=== PATIENT | female | born 1960 | race Hispanic/Latino ===

== ENCOUNTER 2022-01-10 01:37 | Emergency (ER) | payer OTHER ==
[~2022-01-10] VITALS: Ht 149.9 cm; Wt 100.2 kg
[2022-01-10] MEDS ORDERED: FAMOTIDINE 20MG VIAL IV ONE ×2 (01:38→02:00)
[2022-01-10] MEDS ORDERED: ONDANSETRON 4MG INJ ONE (01:52)
[2022-01-10 01:59] LABS: BASOPHILS % (AUTO) 0.2 % (0.0-5.0); EOSINOPHILS % (AUTO) 0.2 % (0.0-8.0); HEMATOCRIT 48.2 % (36-48); LYMPHOCYTES % (AUTO) 5.4 % (21.0-51.0); MEAN CORPUSCULAR HEMOGLOBIN 32.2 pg (27.0-33.0); MEAN CORPUSCULAR VOLUME 94.5 fL (79-99); MONOCYTES % (AUTO) 0.4 % (3.0-13.0); NEUTROPHILS % (AUTO) 93.2 % (40.0-77.0); PLATELET COUNT (AUTO) 299 K/uL (130-400); WHITE BLOOD COUNT (AUTO) 12.7 K/uL (4.8-10.8)
[2022-01-10] MEDS ORDERED: ONDANSETRON 4MG INJ IVP ONE (02:00)
[2022-01-10 02:11] LABS: CREATININE 1.5 mg/dL (0.5-1.5); POTASSIUM 3.6 mmol/L (3.5-5.1)
[2022-01-10 02:16] LABS: ALBUMIN 3.6 g/dL (3.5-5.0); BILIRUBIN,TOTAL 0.5 mg/dL (0.2-1.0); TOTAL PROTEIN, SERUM 6.9 g/dL (6.0-8.3)
[2022-01-10 03:08] LABS: APPEARANCE,URINE Cloudy (CLEAR); BILIRUBIN,URINE Negative (NEGATIVE); COLOR,URINE Yellow (YELLOW); GLUCOSE, URINE (UA) Negative (NEGATIVE); KETONES,URINE Trace mg/dL (NEGATIVE); LEUKOCYTE ESTERASE ,URINE Trace (NEGATIVE); NITRATE,URINE Negative (NEGATIVE); OCCULT BLOOD,URINE Negative (NEGATIVE); PH,URINE 5.5 (5.0-8.0); PROTEIN,URINE Trace mg/dL (NEGATIVE); UROBILINOGEN,URINE 0.2 mg/dL (0.2-1.0)
[2022-01-10] MEDS ORDERED: ONDA4TAB10 SL (03:09)
[2022-01-10] MEDS ORDERED: OMEP-420 PO (03:09)
[2022-01-10] MEDS ORDERED: FAMO-136 PO (03:09)
[2022-01-10 03:13] VITALS: BP 92/60
[2022-01-10 03:19] LABS: RBC,URINE None Seen /HPF (0-1)
[2022-01-10 03:20] LABS: BACTERIA,URINE Moderate /HPF (None Seen); SQUAMOUS EPITHELIAL CELL,UR Few /HPF (0-2)
== END 2022-01-10 03:28 | disposition home or self-care (01) ==
LOC: EDH 01:37
DX: K29.70 Gastritis, unspecified, without bleeding (principal); E11.9 Type 2 diabetes mellitus without complications; M79.7 Fibromyalgia; I10 Essential (primary) hypertension; Z90.49 Acquired absence of other specified parts of digestive tract; Z98.890 Other specified postprocedural states
CPT/HCPCS: 36415; 71045; 80053; 81001; 83880; 84484; 85025; 87088; 93005; 96374; 96375; 99285; J2405; J3490

== ENCOUNTER 2024-03-13 20:20 | Emergency (ER) | payer OTHER ==
[~2024-03-13] VITALS: Ht 149.9 cm; Wt 97.5 kg
[~2024-03-13 20:20] MED LIST: FAMO-136 PO; OMEP-420 PO; ONDA-243 SL
[2024-03-13 22:03] LABS: BASOPHILS # (AUTO) 0.07 K/uL (0.00-0.20); BASOPHILS % (AUTO) 0.9 % (0.0-5.0); EOSINOPHILS # (AUTO) 0.32 K/uL (0.00-0.70); HEMATOCRIT 45.1 % (36-48); IMMATURE GRANULOCYTE ABSOLUTE 0.01 K/uL (0-1); LYMPHOCYTES # (AUTO) 3.2 K/uL (1.0-4.8); LYMPHOCYTES % (AUTO) 40.5 % (21.0-51.0); MEAN CORPUSCULAR HEMOGLOBIN 32.2 pg (27.0-33.0); MEAN CORPUSCULAR HGB CONC 34.1 g/dL (32.0-36.0); MEAN CORPUSCULAR VOLUME 94.4 fL (79-99); MONOCYTES # (AUTO) 0.8 K/uL (0.1-1.0); MONOCYTES % (AUTO) 9.5 % (3.0-13.0); NEUTROPHILS # (AUTO) 3.6 K/uL (1.8-7.7); PLATELET COUNT (AUTO) 241 K/uL (130-400); RED BLOOD CELL COUNT(AUTO) 4.78 MIL/uL (4.00-5.50); WHITE BLOOD COUNT (AUTO) 7.9 K/uL (4.8-10.8)
[2024-03-13 22:16] LABS: CREATININE 0.7 mg/dL (0.5-1.0); POTASSIUM 3.8 mmol/L (3.5-5.1)
[2024-03-13 22:21] LABS: COVID19 (SARS ANTIGEN RAPID) PRESUMPTIVE NEGATIVE (NEGATIVE)
[2024-03-13 22:22] LABS: INFLUENZA TYPE A Negative For Type A (NEGATIVE); INFLUENZA TYPE B Negative For Type B (NEGATIVE)
[2024-03-13 22:25] LABS: ALBUMIN 4.1 g/dL (3.5-5.0); BILIRUBIN,TOTAL 0.8 mg/dL (0.2-1.0); TOTAL PROTEIN, SERUM 7.6 g/dL (6.0-8.3)
[2024-03-13 22:33] LABS: B-TYPE NATRIURETIC PEPTIDE < 5 pg/mL (0-100)
[2024-03-13 22:37] LABS: APPEARANCE,URINE CLEAR (CLEAR); BILIRUBIN,URINE NEGATIVE (NEGATIVE); COLOR,URINE COLORLESS (YELLOW); GLUCOSE, URINE (UA) NEGATIVE (NEGATIVE); KETONES,URINE NEGATIVE (NEGATIVE); LEUKOCYTE ESTERASE ,URINE NEGATIVE Leu/uL (NEGATIVE); NITRATE,URINE NEGATIVE (NEGATIVE); OCCULT BLOOD,URINE SMALL (NEGATIVE); PROTEIN,URINE NEGATIVE (NEGATIVE); UROBILINOGEN,URINE 0.2 mg/dL (0.2-1.0)
[2024-03-13 22:47] LABS: ADD UA MICROSCOPIC YES
[2024-03-13 22:48] LABS: BACTERIA,URINE RARE /HPF (None Seen); MUCUS,URINE RARE LPF (None Seen); SQUAMOUS EPITHELIAL CELL,UR RARE /HPF (0-2); WBC,URINE 0-1 /HPF (0-1)
[2024-03-13] MEDS ORDERED: IOHEXOL 350 MG/ML 100ML INFUS..BTL IV ONE (22:58)
[2024-03-13] MEDS: PANTOPRAZOLE 40 MG/VIAL IVP ONE (23:14)
[2024-03-13] MEDS: 0.9%NACL 1000ML 1,000 ML IV ONE (23:14)
[2024-03-13] MEDS: ONDANSETRON 4MG INJ IVP ONE (23:14)
[2024-03-13] MEDS: MORPHINE 4 MG SYG IVP ONE (23:15)
[2024-03-14 00:13] VITALS: BP 158/78; PULSE 80; RESP 17; O2SAT 96
[2024-03-14] MEDS: ACETAMINOPHEN 325 MG TAB PO ONE (00:20)
[2024-03-14] MEDS ORDERED: AMOX500C2 PO (01:02)
[2024-03-14] MEDS ORDERED: LORA10TA7 PO (01:02)
[2024-03-14] MEDS ORDERED: PANT40GR PO (01:02)
[2024-03-14] MEDS ORDERED: FLUT16H NASAL (01:02)
[2024-03-14] MEDS: DEXAMETHASONE SOD PHOSPHATE 4 MG/ML 1ML VIAL IM ONE (01:10)
== END 2024-03-14 01:19 | disposition home or self-care (01) ==
LOC: EDH 20:20
DX: K29.70 Gastritis, unspecified, without bleeding (principal); J32.9 Chronic sinusitis, unspecified; R07.89 Other chest pain; R11.2 Nausea with vomiting, unspecified; R19.7 Diarrhea, unspecified; E11.9 Type 2 diabetes mellitus without complications; E78.00 Pure hypercholesterolemia, unspecified; I10 Essential (primary) hypertension; Z20.822 Contact with and (suspected) exposure to COVID-19
CPT/HCPCS: 99285; 74177; 96374; 96375; 71045; 87426; 84484 ×2; 80053; 83880; 83690; 85025; 87804 ×2; 81001; 36415; 93005; 96372; J7030; J2405; J2270; Q9967; J1100

== ENCOUNTER 2024-11-12 00:26 | Emergency (ER) | payer OTHER ==
[~2024-11-12] VITALS: Ht 149.9 cm; Wt 97.1 kg
[~2024-11-12 00:26] MED LIST changes: +AMOX500C2 PO; +FLUT16H NASAL; +LORA10TA7 PO; +PANT40GR PO
--- NOTE | 2024-11-12 00:31 | NUR ---
REPORT TO Vance CHIN RN
[2024-11-12] MEDS: EPINEPHrine PF 1MG (1:1,000) 1 MG/ML AMP ONE (00:45)
[2024-11-12] MEDS: EPINEPHrine PF 1MG (1:1,000) 1 MG/ML AMP SQ ONE (00:45)
--- NOTE | 2024-11-12 01:41 | ERN ---
General Chief Complaint: Allergic Reaction Stated Complaint: ALLERGIC REACTION Time Seen by : 00:32 History of Present Illness Initial Comments Patient is a 63-year-old female with a past medical history of diabetes hypertension ankylosis fibromyalgia osteoporosis and vitiligo. She was prescribed diclofenac for her fibromyalgia and she thinks that that precipitated an allergic reaction. She was taking a shower because she was cold and after stepping out of the shower she felt a rash itching and queasiness so she came to the emergency room. She arrived in the ED extremely agitated and wheezing although her lung exam was normal. She was given IM epinephrine and her rash has since receded and she feels better. She still feels tightness in her chest and that she is going to vomit. Allergies: Coded Allergies: diclofenac (Unverified Allergy, Unknown, 11/12/24) Home Meds Active Scripts Amoxicillin (Amoxicillin) 500 Mg Capsule, 500 MG PO Q8H for 5 Days, #15 CAP Prov:LEONOR RAYMUNDO MD 03/14/24 Pantoprazole Sodium (Pantoprazole Sodium) 40 Mg Granpkt., 40 MG PO DAILY for 30 Days, #30 TAB Prov:LEONOR RAYMUNDO MD 03/14/24 Fluticasone Propionate (Flonase Nasal Iantha) 50 Mcg/Actuation Iantha, 50 MCG NASAL DAILY for 14 Days, #1 UNIT Prov:LEONOR RAYMUNDO MD 03/14/24 Loratadine (Loratadine) 10 Mg Tablet, 10 MG PO DAILY for 14 Days, #14 TAB Prov:LEONOR RAYMUNDO MD 03/14/24 Omeprazole (Omeprazole) 20 Mg Tab.rap.dr, 20 MG PO DAILY for 14 Days, #14 TAB Prov:REYNA TURNER MD 01/10/22 Ondansetron (Ondansetron Odt) 4 Mg Tab.rapdis, 4 MG SL Q4HPRN PRN for NAUSEA/VOMITING, #10 TAB Prov:REYNA TURNER MD 01/10/22 Famotidine (Pepcid) 20 Mg Tablet, 20 MG PO q12 for 14 Days, #28 TAB Prov:REYNA TURNER MD 01/10/22 Past Medical History Past Medical History: Diabetes-Type II, Fibromyalgia, High Cholesterol, Hypertension Medical History Other: ankylosis, fibromyalgia, osteoporosis Past Surgical History: None Surgical History Other: HERNIA REPAIR, BILATERAL WRIST SURGERY Female( History) History: Not Applicable Constitutional: (+) chills, (+) weakness Respiratory: (+) cough, (+) wheezing Cardiovascular: (+) chest pain Gastrointestinal/Abdominal: (+) nausea Review of Systems: & the rest were negative. Physical Exam General Appearance: (+) mild distress, (+) moderate distress Orientation: (+) alert, (+) oriented x 3 Eye: bilateral eye normal inspection, bilateral eye PERRL, bilateral eye EOMI Ear, Nose, Throat: (+) hearing grossly normal, (+) moist mucous membraine, (+) normal pharynx Neck: (+) normal inspection, (+) supple, (+) full range of motion, (+) no JVD Respiratory: (+) chest non-tender, (+) lungs clear, (+) well ventilated Heart: (+) no gallop, (+) tachycardia Vascular: (+) no edema, (+) normal peripheral pulse Gastrointestinal: (+) soft, (+) non-tender, (+) bowel sound present Gastrointestinal Comment obese Extremities: (+) normal range of motion, (+) non-tender Skin Comment Vitiligo over entire body, rash resolved. Results Laboratory and Microbiology Lab and Micro Result Laboratory Tests Test 11/12/24 01:40 White Blood Count 2.0 K/uL (4.8-10.8) L Red Blood Count 4.92 MIL/uL (4.00-5.50) Hemoglobin 15.2 g/dL (12.0-16.0) Hematocrit 47.5 % (36-48) Mean Corpuscular Volume 96.5 fL (79-99) Mean Corpuscular Hemoglobin 30.9 pg (27.0-33.0) Mean Corpuscular Hemoglobin Concent 32.0 g/dL (32.0-36.0) Red Cell Distribution Width 14.0 % (11.0-15.5) Platelet Count 240 K/uL (130-400) Mean Platelet Volume 10.1 fL (7.5-10.5) Immature Granulocyte % (Auto) 0.5 % (0-1) Neutrophils (%) (Auto) 66.0 % (40.0-77.0) Lymphocytes (%) (Auto) 32.0 % (21.0-51.0) Monocytes (%) (Auto) 0.5 % (3.0-13.0) L Eosinophils (%) (Auto) 1.0 % (0.0-8.0) Basophils (%) (Auto) 0.0 % (0.0-5.0) Neutrophils # (Auto) 1.3 K/uL (1.8-7.7) L Lymphocytes # (Auto) 0.6 K/uL (1.0-4.8) L Monocytes # (Auto) 0.0 K/uL (0.1-1.0) L Eosinophils # (Auto) 0.02 K/uL (0.00-0.70) Basophils # (Auto) 0.00 K/uL (0.00-0.20) Absolute Immature Granulocyte (auto 0.01 K/uL (0-1) Nucleated Red Blood Cells 0.0 % (0.0-0.19) White Cell Morphology Comment See comments Sodium Level 139 mmol/L (136-145) Potassium Level 3.5 mmol/L (3.5-5.1) Chloride Level 101 mmol/L (101-111) Carbon Dioxide Level 24 mmol/L (21-32) Blood Urea Nitrogen 21 mg/dL (7-18) H Creatinine 1.0 mg/dL (0.5-1.0) Glomerular Filtration Rate Calc 64 mL/min (>90) Random Glucose 132 mg/dL (70-105) H Total Calcium 9.3 mg/dL (8.5-10.1) Troponin I High Sensitivity 5 ng/L (4-50) MDM Immediately upon arrival in the ED patient received two 0.3 mg IM doses of epinephrine. She feels better now and breathing more easily, except for chest pain and pressure. She is tachycardic. I will order a L of normal saline as well as EKG troponin CBC and a basic metabolic panel. She will get Zofran four nausea. The CBC shows a low WBC, but otherwise normal. EKG and troponins likewise negative. Pt stable for discharge. ED Course Orders Procedure Category Date Status Time Epinephrine Pf 1mg PHA 11/12/24 Complete (1:1,000) (Adrenaline 01:00 Epinephrine Pf 1mg PHA 11/12/24 Complete (1:1,000) (Adrenaline 00:38 Cbc With Differential LAB 11/12/24 Complete 01:37 Troponin I High LAB 11/12/24 Complete Sensitivity 01:37 12 Lead Ekg Tracing- EKG 11/12/24 Logged Technical 01:37 Ondansetron 4mg Inj PHA 11/12/24 Complete (Zofran 4mg Inj) 02:00 12 Lead Ekg Tracing- EKG 11/12/24 Logged Technical 01:38 0.9%Nacl 1000ml (Ns PHA 11/12/24 Complete 1000ml) 02:00 Basic Metabolic Panel LAB 11/12/24 Complete 01:39 Current Medications Medications (Trade) Dose Ordered Sig/Billy Route PRN Reason Start Time Stop Time Status Last Admin Dose Admin Epinephrine HCl (ADRENaline PF 1MG AMP) 0.3 mg ONCE ONCE SQ 11/12/24 01:00 11/12/24 01:01 DC 11/12/24 00:45 Epinephrine HCl (ADRENaline PF 1MG AMP) 1 mg STK-MED ONCE .ROUTE 11/12/24 00:38 11/12/24 00:44 DC Ondansetron HCl (zoFRAN 4MG INJ) 4 mg ONCE ONCE IVP 11/12/24 02:00 11/12/24 02:01 DC 11/12/24 02:04 Sodium Chloride 1,000 ml @ 0 mls/hr ONCE ONCE IV 11/12/24 02:00 11/12/24 02:01 DC 11/12/24 01:42 Vital Signs Date Time Temp Pulse Resp B/P (MAP) Pulse Ox O2 Delivery O2 Flow Rate FiO2 11/12/24 01:10 99.7 124 23 150/64 100 Nasal Cannula* 3 32 11/12/24 00:27 100.6 128 26 96 Room Air DX & DISP Disposition: Discharge Departure Impression: Primary Impression: Anaphylactic reaction Condition: Stable Additional Instructions: PT needs to follow up with primary PCP for low WBC's. Also patient asked about peripheral neuropathy in her posterior right thigh. I recommended she follow up with her primary care physician for evaluation of spinal stenosis and medications for the neuropathy. Referrals: SALLY SOLIZ MD (PCP) JEFERSON LANDERS MD Nov 12, 2024 01:41
[2024-11-12] MEDS: 0.9%NACL 1000ML 1,000 ML IV ONE (01:42)
[2024-11-12 01:51] LABS: EOSINOPHILS # (AUTO) 0.02 K/uL (0.00-0.70); HEMATOCRIT 47.5 % (36-48); IMMATURE GRANULOCYTE ABSOLUTE 0.01 K/uL (0-1); LYMPHOCYTES # (AUTO) 0.6 K/uL (1.0-4.8); MEAN CORPUSCULAR HEMOGLOBIN 30.9 pg (27.0-33.0); MEAN CORPUSCULAR VOLUME 96.5 fL (79-99); MONOCYTES % (AUTO) 0.5 % (3.0-13.0); NEUTROPHILS # (AUTO) 1.3 K/uL (1.8-7.7); PLATELET COUNT (AUTO) 240 K/uL (130-400); RED BLOOD CELL COUNT(AUTO) 4.92 MIL/uL (4.00-5.50)
[2024-11-12] MEDS: ondanSETRON 4MG INJ IVP ONE (02:04)
[2024-11-12 02:31] LABS: POTASSIUM 3.5 mmol/L (3.5-5.1)
[2024-11-12 04:13] VITALS: BP 123/63; PULSE 106; RESP 20; TEMP 99.6; O2SAT 95
--- NOTE | 2024-11-12 08:21 | EKG ---
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
== END 2024-11-12 04:24 | disposition home or self-care (01) ==
LOC: EDH 00:26
DX: T78.2XXA Anaphylactic shock, unspecified, initial encounter (principal); E11.9 Type 2 diabetes mellitus without complications; E78.00 Pure hypercholesterolemia, unspecified; I10 Essential (primary) hypertension; M79.7 Fibromyalgia; Z79.899 Other long term (current) drug therapy; Z98.890 Other specified postprocedural states; X58.XXXA Exposure to other specified factors, initial encounter
CPT/HCPCS: 99285; 96374; 84484; 80048; 85025; 36415; 93005; 96372; J7030; J0171; J2405; 99284